=== PATIENT | female | born 1965 | race Caucasian/White ===

== ENCOUNTER 2025-01-21 13:56 | Emergency (ER) | payer BC, SELFPAY ==
[2025-01-21 14:01] VITALS: BP 154/82
--- NOTE | 2025-01-21 15:28 | ED.GENMED ---
History of Present Illness
General
Chief Complaint: Ear Problem
Time Seen by Provider: 01/21/25 15:28
History of Present Illness
History of Present Illness:
FOCUSED PAST MEDICAL HISTORY
- Has had hysterectomy in the past
REVIEW OF OLD RECORDS
- The patient had colonoscopy 2016
Note:
CHIEF COMPLAINT(S)
Ear pain and bleeding from the ear.
HISTORY OF PRESENT ILLNESS
The patient is a 59-year-old female who initially presented with symptoms of ear pain, which led her to visit her primary care provider after having a cold. She was diagnosed with a probable bacterial ear infection affecting both ears and was
started on oral antibiotics, specifically, cefuroxime. The exact dosage and duration were not specified. Due to inadequate improvement and bleeding from the ear observed on Tuesday, her medication was switched to levofloxacin, which she has been
taking since then. She denies having any fever but reports a history of mild cold prior to the onset of ear symptoms. The patient also mentions difficulty hearing and describes hearing impairment on both sides. Physical examination revealed some
fresh blood, and the possibility of a tympanic membrane perforation was considered. The plan is to consult an Ear, Nose, and Throat specialist for further evaluation.
PAST MEDICAL AND SURGICAL HISTORY
The patient has a history of rheumatoid arthritis for which she takes methotrexate.
CHRONIC MEDICAL CONDITIONS SIGNIFICANTLY AFFECTING CARE
Rheumatoid arthritis requiring methotrexate treatment.
REVIEW OF SYSTEMS
- Ear, Nose, and Throat: Ear pain, bleeding from the ear, hearing impairment on both sides.
- General: Reports a history of mild cold.
- Neurological: Reports feeling lightheaded.
PHYSICAL EXAM
General: Alert, no acute distress.
Skin: Warm, dry.
Head: Normocephalic, atraumatic.
Neck: Supple, trachea midline.
Eye Ears, Nose, Mouth and Throat: Evidence of fresh blood at the left TM with possible tympanic membrane perforation, bilateral TM patchy redness. Oral mucosa moist.
Cardiovascular: Normal peripheral perfusion, No edema.
Respiratory: Respirations are non-labored.
Gastrointestinal: Abdomen nondistended
Back: Normal range of motion, Normal alignment.
Musculoskeletal: Normal ROM, normal strength.
Neurological: Alert and oriented to person, place, time, and situation, no focal neurological deficit observed.
Psychiatric: Cooperative, appropriate mood & affect.
PROBLEM LIST
Acute:
- Bilateral ear infection with possible tympanic membrane perforation.
- Hearing impairment.
- Fresh blood from the ear.
Chronic:
- Rheumatoid arthritis.
PLAN
1. Consultation with an Ear, Nose, and Throat specialist to evaluate potential tympanic membrane perforation.
2. Review and adjust antibiotics as necessary after discussion with the specialist.
DIFFERENTIAL DIAGNOSIS
The Differential Diagnosis includes, in no particular order and is not limited to:
1. Acute otitis media with possible perforation.
2. Otitis externa with blood from the ear.
3. Otomycosis.
4. Tympanic membrane perforation secondary to infection.
5. Viral upper respiratory infection leading to ear symptoms.
6. Serous otitis media.
7. Sensorineural hearing loss.
8. Barotrauma-related ear symptoms.
9. Mastoiditis.
10. Cholesteatoma.
Disposition:
SUMMARY OF ENCOUNTER
The patient presented with bilateral ear pain and hearing loss, initially treated with cefuroxime and then switched to levofloxacin without adequate improvement. Noting persistent symptoms and possible tympanic membrane perforation, especially with
left-sided bleeding, a decision was made to switch the antibiotic regimen to clindamycin and to initiate treatment with oral steroids to help reduce inflammation. Additional steroid ear drops were considered due to the potential perforation and
inflammation. The patient was advised to follow up with their Ear, Nose, and Throat specialist for further management.
DISPOSITION
Discharge.
PLAN
1. Initiate treatment with clindamycin and oral steroids.
2. Start topical steroid ear drops.
3. Follow up with an ENT specialist, Dr. Lopez, as soon as possible for further evaluation and management.
PATIENT EDUCATION AND COUNSELING
The patient was educated on the change in medication regimen, emphasizing the importance of adherence to the new antibiotics and the use of steroids both orally and topically. The potential need for further evaluation by an ENT specialist was
discussed, along with the possibility that the infections could be viral in nature.
FOLLOW-UP INSTRUCTIONS
The patient was instructed to contact Dr. Lopez, their ENT specialist, for a follow-up visit to ensure appropriate management of the ear condition and to verify the status of the potential tympanic membrane perforation.
MEDICATION RECONCILIATION
1. Clindamycin (not previously taken by the patient).
2. Oral steroids to reduce inflammation.
3. Steroid ear drops for topical application.
MEDICAL DECISION MAKING
- Number and Complexity of Problems Addressed: Chronic conditions affecting care include rheumatoid arthritis.
- Differential Diagnosis: Acute otitis media with possible perforation, otitis externa, otomycosis, tympanic membrane perforation secondary to infection, viral upper respiratory infection leading to ear symptoms, serous otitis media, sensorineural
hearing loss, barotrauma-related ear symptoms, mastoiditis, cholesteatoma.
DIAGNOSIS
- Bilateral otitis media with left tympanic membrane perforation (H66.93)
- Hearing loss (H91.90)
UPDATE
- I discussed case with Dr. Boykin who recommends oral steroids and switching to oral clindamycin. He also agrees with using Ciprodex drops.
Past History
Past History
ED Past Medical History: Other (Arthritis, DVT, hypothyroidism, status post hysterectomy)
Social History
Tobacco: Non-smoker
Alcohol: Occasional
Family History
Family History: Other (Dad with colon cancer, throat cancer and brain cancer)
Phy Exam
Physical Exam
Physical Exam:
See HPI
Course
Orders/Labs/Results
Orders:
Orders
01/21/25 15:51
Neomycin/Polymyxin/Hc [Cortisporin Otic Suspension] See Dose Instructions OTIC NOW STA
Vital Signs
Initial and Last Documented VS:
Initial Vital Signs
Temp Pulse Resp BP Pulse Ox
36.8 C 71 16 154/82 99
01/21/25 14:01 01/21/25 14:01 01/21/25 14:01 01/21/25 14:01 01/21/25 14:01
Last Documented Vital Signs
Temp Pulse Resp BP Pulse Ox
36.8 C 71 16 154/82 99
01/21/25 14:01 01/21/25 14:01 01/21/25 14:01 01/21/25 14:01 01/21/25 15:29
*Pulse Oximetry
SaO2: 99
Oxygen Mode of Delivery: Room air
Patient hypoxic: no
*Critical Care Note
Total Time (30-74mins, 75-104mins- exclusive of procedures): Not Applicable
ED Attending Note
-
Portions of this chart may have been created with voice recognition software.� Occasional wrong word or��sound alike� substitutions may have occurred due to the inherent limitations of voice recognition software.
Discharge Plan
Departure
Patient Disposition: Home (Routine Discharge)
Date of Disposition: 01/21/25
Time of Disposition: 16:03
Patient with high blood pressure during this ER visit?: Yes
Discharge Problem:
Acute otitis media of left ear with perforated tympanic membrane
Instructions: Serous Otitis Media (DC), BLOOD PRESSURE
Prescriptions:
New
ciprofloxacin-dexamethasone 0.3-0.1 % drops,suspension
4 drp LEFT EAR BID 7 Days Qty: 7.5 0RF
clindamycin HCl [Cleocin HCl] 300 mg capsule
300 mg PO TID Qty: 21 0RF
methylprednisolone [Medrol ([place])] 4 mg tablets,dose pack
See Rx Instructions .ROUTE .COMPLEX Qty: 21 0RF
Rx Instructions:
for 6 days
Referrals:
Chava Phillips MD [Family Provider, Internal Medicine]
Alfred Boykin MD [Active, Otology]
Activity Restrictions/Additional Instructions:
I discussed everything with Dr. Boykin. Please call his office for follow-up. He recommended steroids and a different antibiotic as well as drops that include antibiotics and steroids.
Interventions
Interventions:
*Risk Screen - Suicide Last Done: 01/21/25 14:01
*General Assessment Last Done: 01/21/25 14:01
*Neglect/Abuse Screening Last Done: 01/21/25 14:01
Discharge Date and Time
Print Language: ITALIAN
== END 2025-01-21 16:30 | disposition home or self-care (01) ==
LOC: EMR 13:56
PROVIDERS: EMERGENCY PHYSICIAN Emergency Medicine; FAMILY PHYSICIAN Internal Medicine
DX: H66.92 Otitis media, unspecified, left ear (principal); H72.92 Unspecified perforation of tympanic membrane, left ear; M06.9 Rheumatoid arthritis, unspecified; E03.9 Hypothyroidism, unspecified; Z86.718 Personal history of other venous thrombosis and embolism; Z79.899 Other long term (current) drug therapy
CPT/HCPCS: 99283